=== PATIENT | male | born 1980 | race Caucasian/White ===

== ENCOUNTER 2021-10-23 23:12 | Emergency (ER) | payer BC ==
[~2021-10-23] VITALS: Ht 185.4 cm; Wt 104.8 kg
== END 2021-10-24 05:15 | disposition home or self-care (01) ==
LOC: ED 23:12
PROC: 0HQGXZZ Repair Left Hand Skin, External Approach (ICD-10-PCS; principal; 2021-10-23)
DX: S61.211A Laceration without foreign body of left index finger without damage to nail, initial encounter (principal); W26.0XXA Contact with knife, initial encounter
CPT/HCPCS: 12002; 99282-25